=== PATIENT | male | born 1945 | race Caucasian/White ===

== ENCOUNTER 2021-03-15 15:00 | Outpatient (REF) | payer SELFPAY ==
[2021-03-15 15:29] LABS: COVID-19 Test Negative (Negative); IDNOW Serial# 55D5AD1C
== END 2021-03-15 15:01 | disposition home or self-care (01) ==
LOC: HO.LAB 15:00
PROVIDERS: Visit Provider Internal Medicine
DX: Z20.822 Contact with and (suspected) exposure to COVID-19 (principal)
CPT/HCPCS: 36415; 87635; C9803